=== PATIENT | female | born 1955 | race Caucasian/White ===

== ENCOUNTER → 2020-10-04 | Outpatient (CLI) | payer MEDICARE, OTHER | LOC: KOH-I 09:49 | DX: S82.431A Displaced oblique fracture of shaft of right fibula, initial encounter for closed fracture (principal) | CPT/HCPCS: 73610 ==

== ENCOUNTER → 2020-10-25 | Outpatient (CLI) | payer MEDICARE, OTHER | LOC: KOH-I 09:41 | DX: S82.401D Unspecified fracture of shaft of right fibula, subsequent encounter for closed fracture with routine healing (principal) | CPT/HCPCS: 73610 ==

== ENCOUNTER → 2020-11-15 | Outpatient (CLI) | payer MEDICARE, OTHER | LOC: KOH-I 10:09 | DX: S82.61XA Displaced fracture of lateral malleolus of right fibula, initial encounter for closed fracture (principal) | CPT/HCPCS: 73610 ==

== ENCOUNTER → 2020-11-26 | Outpatient (CLI) | payer MEDICARE, OTHER | LOC: KOH-I 08:17 | DX: S82.891A Other fracture of right lower leg, initial encounter for closed fracture (principal); S82.451G Displaced comminuted fracture of shaft of right fibula, subsequent encounter for closed fracture with delayed healing; S82.61XG Displaced fracture of lateral malleolus of right fibula, subsequent encounter for closed fracture with delayed healing | CPT/HCPCS: 73700 ==

== ENCOUNTER → 2020-12-21 | Outpatient (CLI) | payer MEDICARE, OTHER | LOC: KOH-I 11:31 | DX: S82.401A Unspecified fracture of shaft of right fibula, initial encounter for closed fracture (principal); S89.301A Unspecified physeal fracture of lower end of right fibula, initial encounter for closed fracture | CPT/HCPCS: 73610 ==

== ENCOUNTER → 2021-02-08 | Outpatient (CLI) | payer MEDICARE, OTHER | LOC: KOH-I 09:38 | DX: S82.831D Other fracture of upper and lower end of right fibula, subsequent encounter for closed fracture with routine healing (principal) | CPT/HCPCS: 73610 ==